=== PATIENT | male | born 1965 | race Two or more races ===

== ENCOUNTER 2022-04-21 15:38 | Inpatient (IN) | payer MEDICAID, OTHER ==
[~2022-04-21] VITALS: Ht 172.7 cm; Wt 71.1 kg
[2022-04-21] MEDS ORDERED: SODIUM CHLORIDE 0.9% 2,000 ML IV ONE (18:30)
[2022-04-21] MEDS ORDERED: IOHEXOL 350 MG/ML 100ML IJ ONE ×2 (18:36)
[2022-04-21 19:29] LABS: Basophils # (auto) 0 10 ^3/uL (0-0.2); Basophils % (auto) 0.4 % (0.0-2.0); Eosinophils # (auto) 0 10 ^3/uL (0-0.8); Hemoglobin 14.1 g/dL (13.5-17.5); Lymphocytes # (auto) 0.3 10 ^3/uL (0.4-5.4); Lymphocytes % (auto) 2.9 % (10.0-50.0); Mean Corpuscular Hemoglobin 28.8 pg (28.0-32.0); Mean Corpuscular Hgb Conc. 33.4 g/dL (32.0-36.0); Monocytes # (auto) 0.4 10 ^3/uL (0-1.3); Neutrophils % (auto) 92.7 % (37.0-80.0); Red Blood Cells 4.89 10^6/uL (4.5-5.90); Red Cell Distribution Width 13.4 % (11.8-14.3); White Blood Cell 10.8 10^3/uL (4.4-10.8)
[2022-04-21 19:46] LABS: Albumin 3.3 g/dL (3.4-5.0); BUN/Creatinine Ratio 17.2; Calcium 8.6 mg/dL (8.5-10.1); Magnesium 1.9 mg/dL (1.6-2.6); Potassium 3.9 mmol/L (3.5-5.1)
[2022-04-21 19:48] LABS: Lactic Acid w/Reflex 2.9 mmol/L (0.4-2.0)
[2022-04-21 19:49] LABS: Bilirubin, Total 1.3 mg/dL (0.2-1.0); Total Protein 7.5 g/dL (6.4-8.2)
[2022-04-21] MEDS ORDERED: diphenhdrAMINE HCL 50 MG/1 ML VL IV ONE (20:15)
[2022-04-21 21:01] LABS: Urine Bacteria FEW /hpf (None Seen); Urine Blood 1+ /uL (Negative); Urine Hyaline Cast MOD /lpf (0 - 2); Urine Mucus FEW (None Seen); Urine Specific Gravity 1.039 (1.001-1.035); Urine WBC 4 /hpf (0 - 3)
[2022-04-21 21:15] LABS: Amphetamine Screen, Urine NEGATIVE (NEGATIVE); Barbiturate Scree,Urine NEGATIVE (NEGATIVE); Benzodiazephine Screen, Urine NEGATIVE (NEGATIVE); Cannabinoid Screen, Urine NEGATIVE (NEGATIVE); Cocaine Screen, Urine NEGATIVE (NEGATIVE); Opiate Scree,Urine NEGATIVE (NEGATIVE); Phencyclidine Screen, Urine NEGATIVE (NEGATIVE)
[2022-04-21] MEDS ORDERED: CEFEPIME 2 GM in SODIUM CHL 0.9% 50 ML IV ONE (21:15)
[2022-04-21] MEDS ORDERED: ONDANSETRON HCL 4 MG/2 ML VIAL IV PRN (22:30)
[2022-04-21] MEDS ORDERED: SODIUM CHLORIDE 0.9% 1,000 ML IV SCH (22:30)
[2022-04-21] MEDS ORDERED: DEXTROSE (50%) 50ML SYRG IV PRN (22:30)
[2022-04-21] MEDS ORDERED: DOCUSATE SOD 100 MG CAP PO PRN (22:30)
[2022-04-21] MEDS ORDERED: MORPHINE SULFATE INJ 2 MG/ml SYRG IV PRN (23:15)
[2022-04-21] MEDS ORDERED: NITROGLYCERIN 0.4 MG SL TAB SL PRN (23:15)
[2022-04-22 01:19] VITALS: BP 105/72
[2022-04-22] MEDS: ACETAMINOPHEN 325 MG TAB PO PRN ×3 (01:19→19:36)
[2022-04-22] MEDS: InsuLIN REG 1unit/0.01ml Soln (100units/ml) SC SCH ×4 (01:50→18:34)
[2022-04-22 02:53] VITALS: BP 105/72
[2022-04-22 05:00] VITALS: BP 118/74
[2022-04-22] MEDS: ACCU-CHEK COMFORT CURVE STRIP VI SCH ×4 (06:00→18:11)
[2022-04-22 07:10] LABS: Basophils # (auto) 0.3 10 ^3/uL (0-0.2); Basophils % (auto) 3.8 % (0.0-2.0); Eosinophils # (auto) 0 10 ^3/uL (0-0.8); Hematocrit 38.4 % (41.0-53.0); Hemoglobin 13.7 g/dL (13.5-17.5); Lymphocytes # (auto) 0.7 10 ^3/uL (0.4-5.4); Lymphocytes % (auto) 7.8 % (10.0-50.0); Mean Corpuscular Hemoglobin 30.1 pg (28.0-32.0); Mean Corpuscular Hgb Conc. 35.6 g/dL (32.0-36.0); Mean Corpuscular Volume 84.6 fL (80.0-100.0); Monocytes # (auto) 0.5 10 ^3/uL (0-1.3); Monocytes % (auto) 6.3 % (0.0-12.0); Neutrophils # (auto) 6.9 10 ^3/uL (1.6-8.6); Neutrophils % (auto) 82.1 % (37.0-80.0); Nucleated Red Blood Cells % 0.1 %; Red Blood Cells 4.54 10^6/uL (4.5-5.90); Red Cell Distribution Width 13.9 % (11.8-14.3); White Blood Cell 8.3 10^3/uL (4.4-10.8)
[2022-04-22 07:19] LABS: Albumin 3.3 g/dL (3.4-5.0); Calcium 8.2 mg/dL (8.5-10.1); Potassium 3.7 mmol/L (3.5-5.1)
[2022-04-22 07:22] LABS: Bilirubin, Total 1.4 mg/dL (0.2-1.0)
[2022-04-22 09:00] VITALS: BP_SYST 111; BP_SYST 120; BP_DIAS 64; BP_DIAS 74
[2022-04-22] MEDS: FAMOTIDINE (10MG/ML) 2ML VL IV SCH (09:25)
[2022-04-22] MEDS: cefTRIAXone 1GM/50ML D5W 50 ML IV SCH (09:25)
[2022-04-22] MEDS: ASPirin 81 mg TAB PO SCH (09:26)
[2022-04-22 17:00] VITALS: BP 113/73
[2022-04-22] MEDS ORDERED: VANCOMYCIN PER PHARMACY 0 MG IV SCH (17:00)
[2022-04-22] MEDS ORDERED: VANCOMYCIN 1GM/250ML 250 ML IV ONE (17:30)
[2022-04-22] MEDS: VANCOMYCIN 1GM/250ML 250 ML IV SCH (18:34)
[2022-04-22] MEDS: SODIUM CHLORIDE 0.9% 1,000 ML IV SCH ×2 (19:17→20:45)
[2022-04-22 22:00] VITALS: BP 111/62
[2022-04-23] MEDS: ACCU-CHEK COMFORT CURVE STRIP VI SCH ×4 (00:07→17:47)
[2022-04-23] MEDS: InsuLIN REG 1unit/0.01ml Soln (100units/ml) SC SCH ×4 (00:09→17:47)
[2022-04-23] MEDS: SODIUM CHLORIDE 0.9% 1,000 ML IV SCH ×3 (04:47→21:06)
[2022-04-23 05:00] VITALS: BP 112/72
[2022-04-23] MEDS: VANCOMYCIN 1GM/250ML 250 ML IV SCH ×2 (06:06→18:00)
[2022-04-23 09:00] VITALS: BP 124/72
[2022-04-23] MEDS: FAMOTIDINE (10MG/ML) 2ML VL IV SCH (11:11)
[2022-04-23] MEDS: ASPirin 81 mg TAB PO SCH (11:11)
[2022-04-23] MEDS: cefTRIAXone 1GM/50ML D5W 50 ML IV SCH (11:12)
[2022-04-23 13:00] VITALS: BP 130/69
[2022-04-23 17:00] VITALS: BP 130/68
[2022-04-23 22:00] VITALS: BP 120/75
[2022-04-23] MEDS: HYDROcodone-ACET 5/325MG TAB PO PRN (22:04)
[2022-04-24] MEDS: InsuLIN REG 1unit/0.01ml Soln (100units/ml) SC SCH ×4 (00:41→18:00)
[2022-04-24] MEDS: ACCU-CHEK COMFORT CURVE STRIP VI SCH ×4 (00:42→18:00)
[2022-04-24] MEDS: SODIUM CHLORIDE 0.9% 1,000 ML IV SCH ×3 (04:53→20:28)
[2022-04-24 05:00] VITALS: BP 121/70
[2022-04-24] MEDS: VANCOMYCIN 1GM/250ML 250 ML IV SCH (05:56)
[2022-04-24 08:00] VITALS: BP 142/72
[2022-04-24] MEDS: cefTRIAXone 1GM/50ML D5W 50 ML IV SCH (10:19)
[2022-04-24] MEDS: HYDROcodone-ACET 5/325MG TAB PO PRN ×2 (10:19→20:56)
[2022-04-24] MEDS: ASPirin 81 mg TAB PO SCH (10:20)
[2022-04-24] MEDS: FAMOTIDINE (10MG/ML) 2ML VL IV SCH (10:20)
[2022-04-24 12:00] VITALS: BP 130/74
[2022-04-24] MEDS ORDERED: PATIENTS OWN MEDICATION (zyvox 600 MG) IV SCH (13:30)
[2022-04-24] MEDS ORDERED: VANCOMYCIN 1GM/250ML 250 ML IV SCH (14:00)
[2022-04-24 16:00] VITALS: BP 134/74
[2022-04-24] MEDS: LINEZOLID 600MG/300ML 300 ML IV SCH (16:00)
[2022-04-24 22:00] VITALS: BP 142/78
[2022-04-25] MEDS ORDERED: LORazepam 2MG/ML-1ML VIAL IV PRN (01:00)
[2022-04-25] MEDS: LINEZOLID 600MG/300ML 300 ML IV SCH (03:05)
[2022-04-25 04:29] LABS: Basophils # (auto) 0 10 ^3/uL (0-0.2); Basophils % (auto) 0.5 % (0.0-2.0); Eosinophils # (auto) 0.1 10 ^3/uL (0-0.8); Eosinophils % (auto) 1.5 % (0.0-7.0); Hematocrit 33.9 % (41.0-53.0); Hemoglobin 11.5 g/dL (13.5-17.5); Lymphocytes # (auto) 0.8 10 ^3/uL (0.4-5.4); Lymphocytes % (auto) 12.3 % (10.0-50.0); Mean Corpuscular Hemoglobin 28.9 pg (28.0-32.0); Mean Corpuscular Volume 84.9 fL (80.0-100.0); Monocytes # (auto) 0.7 10 ^3/uL (0-1.3); Monocytes % (auto) 9.9 % (0.0-12.0); Neutrophils # (auto) 5.1 10 ^3/uL (1.6-8.6); Neutrophils % (auto) 75.8 % (37.0-80.0); Red Blood Cells 3.99 10^6/uL (4.5-5.90); Red Cell Distribution Width 13.7 % (11.8-14.3); White Blood Cell 6.8 10^3/uL (4.4-10.8)
[2022-04-25 05:00] VITALS: BP 122/70
[2022-04-25] MEDS: SODIUM CHLORIDE 0.9% 1,000 ML IV SCH ×3 (05:24→21:49)
[2022-04-25] MEDS: InsuLIN REG 1unit/0.01ml Soln (100units/ml) SC SCH ×5 (06:00→23:40)
[2022-04-25] MEDS: ACCU-CHEK COMFORT CURVE STRIP VI SCH ×5 (06:01→23:40)
[2022-04-25 09:00] VITALS: BP 107/63
[2022-04-25] MEDS: GABAPENTIN 100 MG CAP PO SCH (09:06)
[2022-04-25] MEDS: HYDROcodone-ACET 5/325MG TAB PO PRN (09:06)
[2022-04-25] MEDS: ASPirin 81 mg TAB PO SCH (09:06)
[2022-04-25] MEDS: FAMOTIDINE (10MG/ML) 2ML VL IV SCH (09:06)
[2022-04-25] MEDS ORDERED: DAPTOmycin 6MG/KG PER PHARMACY 0 MG IV SCH (11:00)
[2022-04-25 13:00] VITALS: BP 116/67
[2022-04-25] MEDS ORDERED: DAPTOmycin 500 MG in SODIUM CHL 0.9% 50 ML IV SCH (15:00)
[2022-04-25] MEDS ORDERED: VANCOMYCIN PER PHARMACY 0 MG IV SCH (16:30)
[2022-04-25 16:41] VITALS: BP 122/71
[2022-04-25] MEDS: VANCOMYCIN 1GM/250ML 250 ML IV SCH (17:12)
[2022-04-25 22:00] VITALS: BP 140/73
[2022-04-26] MEDS: VANCOMYCIN 1GM/250ML 250 ML IV SCH ×4 (00:43→23:04)
[2022-04-26 05:00] VITALS: BP 123/69
[2022-04-26 05:36] LABS: Basophils # (auto) 0.1 10 ^3/uL (0-0.2); Basophils % (auto) 1.1 % (0.0-2.0); Eosinophils # (auto) 0.2 10 ^3/uL (0-0.8); Eosinophils % (auto) 2.6 % (0.0-7.0); Hematocrit 33.3 % (41.0-53.0); Hemoglobin 11.4 g/dL (13.5-17.5); Lymphocytes % (auto) 13.5 % (10.0-50.0); Mean Corpuscular Hemoglobin 28.8 pg (28.0-32.0); Mean Corpuscular Hgb Conc. 34.1 g/dL (32.0-36.0); Mean Corpuscular Volume 84.4 fL (80.0-100.0); Monocytes # (auto) 0.7 10 ^3/uL (0-1.3); Monocytes % (auto) 9.5 % (0.0-12.0); Neutrophils # (auto) 5.3 10 ^3/uL (1.6-8.6); Neutrophils % (auto) 73.3 % (37.0-80.0); Red Blood Cells 3.95 10^6/uL (4.5-5.90); White Blood Cell 7.2 10^3/uL (4.4-10.8)
[2022-04-26] MEDS: SODIUM CHLORIDE 0.9% 1,000 ML IV SCH ×3 (05:44→20:59)
[2022-04-26] MEDS: InsuLIN REG 1unit/0.01ml Soln (100units/ml) SC SCH ×4 (05:45→23:05)
[2022-04-26] MEDS: ACCU-CHEK COMFORT CURVE STRIP VI SCH ×4 (05:45→23:05)
[2022-04-26 06:01] LABS: Potassium 3.3 mmol/L (3.5-5.1)
[2022-04-26 06:06] LABS: BUN/Creatinine Ratio 17.1; Calcium 7.4 mg/dL (8.5-10.1); Magnesium 2.3 mg/dL (1.6-2.6)
[2022-04-26 09:00] VITALS: BP 108/69
[2022-04-26] MEDS: FAMOTIDINE (10MG/ML) 2ML VL IV SCH (09:04)
[2022-04-26] MEDS: GABAPENTIN 100 MG CAP PO SCH (09:04)
[2022-04-26] MEDS: ASPirin 81 mg TAB PO SCH (09:04)
[2022-04-26 13:00] VITALS: BP 130/67
[2022-04-26 16:40] LABS: INR 1.13 (0.9-1.15); Partial Thromboplastin Time 33.8 sec (24.6-33.4)
[2022-04-26 16:54] VITALS: BP 143/55
[2022-04-26 22:00] VITALS: BP 125/57
[2022-04-27] MEDS: SODIUM CHLORIDE 0.9% 1,000 ML IV SCH ×3 (04:27→17:33)
[2022-04-27 05:00] VITALS: BP 121/57
[2022-04-27] MEDS: VANCOMYCIN 1GM/250ML 250 ML IV SCH ×4 (05:17→22:59)
[2022-04-27] MEDS: ACCU-CHEK COMFORT CURVE STRIP VI SCH ×4 (05:51→22:59)
[2022-04-27] MEDS: InsuLIN REG 1unit/0.01ml Soln (100units/ml) SC SCH ×4 (05:56→23:06)
[2022-04-27 06:28] LABS: Albumin 2.3 g/dL (3.4-5.0); Calcium 7.6 mg/dL (8.5-10.1)
[2022-04-27 06:31] LABS: BUN/Creatinine Ratio 11.4; Phosphorus 3.2 mg/dL (2.5-4.90)
[2022-04-27 08:44] VITALS: BP 128/65
[2022-04-27] MEDS: ASPirin 81 mg TAB PO SCH (10:13)
[2022-04-27] MEDS: GABAPENTIN 100 MG CAP PO SCH (10:13)
[2022-04-27] MEDS: FAMOTIDINE (10MG/ML) 2ML VL IV SCH (10:13)
[2022-04-27 13:00] VITALS: BP 132/70
[2022-04-27] MEDS ORDERED: LIDOCAINE 1% (LOCAL ANESTH.) PF 5ml SDV ID ONE (15:30)
[2022-04-27 17:00] VITALS: BP 140/68
[2022-04-27] MEDS ORDERED: VANCOMYCIN 1GM/250ML 250 ML IV SCH (21:00)
[2022-04-27 22:00] VITALS: BP 152/78
[2022-04-27] MEDS: SODIUM CHLOR 0.9% PF (SALINE LOCK) 10ML VIAL/SYR IV SCH (22:59)
[2022-04-28 05:30] VITALS: BP 150/72
[2022-04-28] MEDS: ACCU-CHEK COMFORT CURVE STRIP VI SCH ×4 (05:53→23:55)
[2022-04-28] MEDS: VANCOMYCIN 1GM/250ML 250 ML IV SCH ×2 (05:54→12:30)
[2022-04-28] MEDS: InsuLIN REG 1unit/0.01ml Soln (100units/ml) SC SCH ×4 (05:54→23:55)
[2022-04-28 09:01] VITALS: BP 143/69
[2022-04-28] MEDS: SODIUM CHLOR 0.9% PF (SALINE LOCK) 10ML VIAL/SYR IV SCH ×2 (09:40→21:41)
[2022-04-28] MEDS: GABAPENTIN 100 MG CAP PO SCH (09:40)
[2022-04-28] MEDS: FAMOTIDINE (10MG/ML) 2ML VL IV SCH (09:40)
[2022-04-28] MEDS: ASPirin 81 mg TAB PO SCH (09:40)
[2022-04-28 10:36] LABS: BUN/Creatinine Ratio 10.4; Calcium 7.8 mg/dL (8.5-10.1)
[2022-04-28] MEDS ORDERED: POTASSIUM CHL 20 Meq TABLET PO ONE (11:30)
[2022-04-28 12:45] VITALS: BP 148/71
[2022-04-28 16:51] VITALS: BP 145/73
[2022-04-28] MEDS: DAPTOmycin 500 MG in SODIUM CHL 0.9% 50 ML IV SCH (18:36)
[2022-04-28] MEDS: CEFTAROLINE 600 MG in SODIUM CHL 0.9% 250 ML IV SCH (21:11)
[2022-04-28 22:00] VITALS: BP 147/73
[2022-04-29 05:00] VITALS: BP 146/78
[2022-04-29] MEDS: ACCU-CHEK COMFORT CURVE STRIP VI SCH ×4 (05:15→22:15)
[2022-04-29] MEDS: InsuLIN REG 1unit/0.01ml Soln (100units/ml) SC SCH ×4 (05:15→22:15)
[2022-04-29 05:37] LABS: Urine Bacteria NONE SEEN /hpf (None Seen); Urine Blood Negative /uL (Negative); Urine WBC 4 /hpf (0 - 3)
[2022-04-29] MEDS ORDERED: IOHEXOL 300 MG/ML 100ML BOTTLE IJ ONE ×2 (08:20→09:28)
[2022-04-29 09:01] VITALS: BP 139/73
[2022-04-29] MEDS: GABAPENTIN 100 MG CAP PO SCH (10:00)
[2022-04-29] MEDS: ASPirin 81 mg TAB PO SCH (10:00)
[2022-04-29] MEDS: SODIUM CHLOR 0.9% PF (SALINE LOCK) 10ML VIAL/SYR IV SCH ×2 (10:12→22:15)
[2022-04-29] MEDS: CEFTAROLINE 600 MG in SODIUM CHL 0.9% 250 ML IV SCH ×2 (10:12→22:15)
[2022-04-29] MEDS: FAMOTIDINE (10MG/ML) 2ML VL IV SCH (10:51)
[2022-04-29 11:31] LABS: Basophils # (auto) 0 10 ^3/uL (0-0.2); Basophils % (auto) 0.7 % (0.0-2.0); Eosinophils # (auto) 0.1 10 ^3/uL (0-0.8); Eosinophils % (auto) 2.2 % (0.0-7.0); Hematocrit 36.3 % (41.0-53.0); Hemoglobin 12.4 g/dL (13.5-17.5); Lymphocytes % (auto) 17.6 % (10.0-50.0); Mean Corpuscular Hemoglobin 29.2 pg (28.0-32.0); Mean Corpuscular Hgb Conc. 34.1 g/dL (32.0-36.0); Mean Corpuscular Volume 85.6 fL (80.0-100.0); Monocytes # (auto) 0.5 10 ^3/uL (0-1.3); Monocytes % (auto) 7.7 % (0.0-12.0); Neutrophils # (auto) 4.2 10 ^3/uL (1.6-8.6); Neutrophils % (auto) 71.8 % (37.0-80.0); Nucleated Red Blood Cells % 0.1 %; Red Blood Cells 4.23 10^6/uL (4.5-5.90); Red Cell Distribution Width 14.3 % (11.8-14.3); White Blood Cell 5.9 10^3/uL (4.4-10.8)
[2022-04-29 11:56] LABS: BUN/Creatinine Ratio 12.9; Calcium 7.9 mg/dL (8.5-10.1); Potassium 3.3 mmol/L (3.5-5.1)
[2022-04-29 13:00] VITALS: BP 152/78
[2022-04-29] MEDS ORDERED: fentaNYL CITRATE 100 MCG/2 ML VL IV ONE (13:30)
[2022-04-29] MEDS ORDERED: MIDAZOLAM HCL 2MG/2ML 2ml VIAL (1mg/ml) IV ONE (13:30)
[2022-04-29] MEDS ORDERED: POTASSIUM CHL 20 Meq TABLET PO ONE (17:00)
[2022-04-29 17:28] VITALS: BP 141/83
[2022-04-29] MEDS: DAPTOmycin 500 MG in SODIUM CHL 0.9% 50 ML IV SCH (18:44)
[2022-04-29 22:00] VITALS: BP 150/74
[2022-04-30 05:00] VITALS: BP 143/75
[2022-04-30 06:09] LABS: Basophils # (auto) 0.1 10 ^3/uL (0-0.2); Basophils % (auto) 0.8 % (0.0-2.0); Eosinophils # (auto) 0.2 10 ^3/uL (0-0.8); Eosinophils % (auto) 2.8 % (0.0-7.0); Hematocrit 36.3 % (41.0-53.0); Hemoglobin 12.4 g/dL (13.5-17.5); Lymphocytes # (auto) 1.1 10 ^3/uL (0.4-5.4); Lymphocytes % (auto) 17.4 % (10.0-50.0); Mean Corpuscular Hemoglobin 29.4 pg (28.0-32.0); Mean Corpuscular Hgb Conc. 34.3 g/dL (32.0-36.0); Mean Corpuscular Volume 85.7 fL (80.0-100.0); Monocytes # (auto) 0.5 10 ^3/uL (0-1.3); Monocytes % (auto) 7.2 % (0.0-12.0); Neutrophils # (auto) 4.6 10 ^3/uL (1.6-8.6); Neutrophils % (auto) 71.8 % (37.0-80.0); Nucleated Red Blood Cells % 0.1 %; Red Blood Cells 4.23 10^6/uL (4.5-5.90); Red Cell Distribution Width 14.2 % (11.8-14.3); White Blood Cell 6.4 10^3/uL (4.4-10.8)
[2022-04-30 06:26] LABS: Calcium 7.9 mg/dL (8.5-10.1); Magnesium 2.4 mg/dL (1.6-2.6); Potassium 3.8 mmol/L (3.5-5.1)
[2022-04-30 06:29] LABS: BUN/Creatinine Ratio 12.3
[2022-04-30] MEDS: InsuLIN REG 1unit/0.01ml Soln (100units/ml) SC SCH ×4 (06:37→22:23)
[2022-04-30] MEDS: ACCU-CHEK COMFORT CURVE STRIP VI SCH ×4 (06:37→22:23)
[2022-04-30 09:20] VITALS: BP 146/77
[2022-04-30] MEDS: ASPirin 81 mg TAB PO SCH ×2 (10:35→10:36)
[2022-04-30] MEDS: CEFTAROLINE 600 MG in SODIUM CHL 0.9% 250 ML IV SCH ×2 (10:35→22:15)
[2022-04-30] MEDS: SODIUM CHLOR 0.9% PF (SALINE LOCK) 10ML VIAL/SYR IV SCH ×2 (10:35→22:15)
[2022-04-30] MEDS: FAMOTIDINE (10MG/ML) 2ML VL IV SCH (10:35)
[2022-04-30] MEDS: GABAPENTIN 100 MG CAP PO SCH (10:36)
[2022-04-30 13:08] VITALS: BP 128/66
[2022-04-30 16:49] VITALS: BP 133/79
[2022-04-30] MEDS: DAPTOmycin 500 MG in SODIUM CHL 0.9% 50 ML IV SCH (18:09)
[2022-04-30 22:00] VITALS: BP 156/72
[2022-05-01 05:00] VITALS: BP 135/77
[2022-05-01] MEDS: InsuLIN REG 1unit/0.01ml Soln (100units/ml) SC SCH ×4 (06:00→22:16)
[2022-05-01] MEDS: ACCU-CHEK COMFORT CURVE STRIP VI SCH ×4 (06:08→22:16)
[2022-05-01 09:00] VITALS: BP 131/75
[2022-05-01] MEDS: SODIUM CHLOR 0.9% PF (SALINE LOCK) 10ML VIAL/SYR IV SCH ×2 (10:00→22:04)
[2022-05-01] MEDS: GABAPENTIN 100 MG CAP PO SCH (10:00)
[2022-05-01] MEDS: diphenhdrAMINE HCL 25 MG CAP PO PRN ×2 (12:00→17:24)
[2022-05-01] MEDS: diphenhdrAMINE HCL 50 MG/1 ML VL IV PRN ×2 (12:00→22:17)
[2022-05-01] MEDS: ASPirin 81 mg TAB PO SCH (12:02)
[2022-05-01] MEDS: CEFTAROLINE 600 MG in SODIUM CHL 0.9% 250 ML IV SCH ×2 (12:02→22:04)
[2022-05-01] MEDS: FAMOTIDINE (10MG/ML) 2ML VL IV SCH (12:02)
[2022-05-01 13:00] VITALS: BP 142/73
[2022-05-01 17:00] VITALS: BP 142/74
[2022-05-01] MEDS: DAPTOmycin 500 MG in SODIUM CHL 0.9% 50 ML IV SCH (17:24)
[2022-05-01 22:00] VITALS: BP 158/79
[2022-05-02 05:00] VITALS: BP 136/75
[2022-05-02] MEDS: ACCU-CHEK COMFORT CURVE STRIP VI SCH ×4 (06:00→23:24)
[2022-05-02] MEDS: InsuLIN REG 1unit/0.01ml Soln (100units/ml) SC SCH ×4 (06:00→23:24)
[2022-05-02 09:00] VITALS: BP 135/75
[2022-05-02] MEDS: CEFTAROLINE 600 MG in SODIUM CHL 0.9% 250 ML IV SCH (09:54)
[2022-05-02] MEDS: diphenhdrAMINE HCL 25 MG CAP PO PRN ×2 (09:55→23:23)
[2022-05-02] MEDS: GABAPENTIN 100 MG CAP PO SCH (09:55)
[2022-05-02] MEDS: FAMOTIDINE (10MG/ML) 2ML VL IV SCH (09:55)
[2022-05-02] MEDS: SODIUM CHLOR 0.9% PF (SALINE LOCK) 10ML VIAL/SYR IV SCH ×2 (09:55→23:23)
[2022-05-02] MEDS: ASPirin 81 mg TAB PO SCH (09:55)
[2022-05-02] MEDS ORDERED: GADOTERATE MEG 10 MMOL/20ml INJ (0.5MMOL/ml) IV ONE (12:59)
[2022-05-02 13:00] VITALS: BP 133/71
[2022-05-02] MEDS: diphenhdrAMINE HCL 50 MG/1 ML VL IV PRN ×2 (14:00→22:00)
[2022-05-02 14:38] LABS: INR 1.12 (0.9-1.15); Partial Thromboplastin Time 32.5 sec (24.6-33.4)
[2022-05-02 17:00] VITALS: BP 141/82
[2022-05-02] MEDS: DAPTOmycin 500 MG in SODIUM CHL 0.9% 50 ML IV SCH (18:00)
[2022-05-02 22:00] VITALS: BP 149/77
[2022-05-03] MEDS: diphenhdrAMINE HCL 50 MG/1 ML VL IV PRN ×2 (04:18→14:17)
[2022-05-03 05:00] VITALS: BP 126/69
[2022-05-03] MEDS: InsuLIN REG 1unit/0.01ml Soln (100units/ml) SC SCH ×2 (05:47→12:00)
[2022-05-03] MEDS: ACCU-CHEK COMFORT CURVE STRIP VI SCH ×2 (05:47→12:00)
[2022-05-03 08:00] VITALS: BP 124/71
[2022-05-03] MEDS: diphenhdrAMINE HCL 25 MG CAP PO PRN ×2 (08:06→16:46)
[2022-05-03] MEDS ORDERED: DAPT250I IV (08:09)
[2022-05-03] MEDS: ASPirin 81 mg TAB PO SCH (10:34)
[2022-05-03] MEDS: FAMOTIDINE (10MG/ML) 2ML VL IV SCH (10:35)
[2022-05-03] MEDS: GABAPENTIN 100 MG CAP PO SCH (10:38)
[2022-05-03] MEDS ORDERED: LIDOCAINE 1% (LOCAL ANESTH.) PF 5ml SDV ID ONE (11:30)
[2022-05-03 12:00] VITALS: BP 133/74
[2022-05-03] MEDS: SODIUM CHLOR 0.9% PF (SALINE LOCK) 10ML VIAL/SYR IV SCH (15:38)
[2022-05-03] MEDS: DAPTOmycin 500 MG in SODIUM CHL 0.9% 50 ML IV SCH (16:47)
[2022-05-03 16:52] VITALS: BP 125/69
[2022-05-03 17:00] VITALS: BP 125/73
[2022-05-03] MEDS ORDERED: GLIP5TAB12 PO (18:52)
== END 2022-05-03 19:10 | disposition home health service (06) | DRG 720 ==
LOC: ER 15:38 → TELE 23:14 → TELE-WESTW 23:45
PROVIDERS: ADMIT Nurse Practitioner Family; ATTEND Internal Medicine
PROC: 05HB33Z Insertion of Infusion Device into Right Basilic Vein, Percutaneous Approach (ICD-10-PCS; 2022-04-27)
PROC: B54MZZA Ultrasonography of Right Upper Extremity Veins, Guidance (ICD-10-PCS; 2022-04-27)
PROC: B24BZZ4 Ultrasonography of Heart with Aorta, Transesophageal (ICD-10-PCS; principal; 2022-04-29)
PROC: 05HA33Z Insertion of Infusion Device into Left Brachial Vein, Percutaneous Approach (ICD-10-PCS; 2022-05-03)
PROC: B54NZZA Ultrasonography of Left Upper Extremity Veins, Guidance (ICD-10-PCS; 2022-05-03)
DX: A41.02 Sepsis due to Methicillin resistant Staphylococcus aureus (principal); N17.9 Acute kidney failure, unspecified; E87.1 Hypo-osmolality and hyponatremia; T67.01XA Heatstroke and sunstroke, initial encounter; E11.65 Type 2 diabetes mellitus with hyperglycemia; J32.0 Chronic maxillary sinusitis; B02.9 Zoster without complications; E86.0 Dehydration; N39.0 Urinary tract infection, site not specified; E86.1 Hypovolemia; N28.9 Disorder of kidney and ureter, unspecified; L02.31 Cutaneous abscess of buttock; X58.XXXA Exposure to other specified factors, initial encounter; Z20.822 Contact with and (suspected) exposure to COVID-19; K04.7 Periapical abscess without sinus; Z87.891 Personal history of nicotine dependence; Y93.89 Activity, other specified; Y92.89 Other specified places as the place of occurrence of the external cause; Y99.8 Other external cause status; Z79.84 Long term (current) use of oral hypoglycemic drugs
CPT/HCPCS: 36415; 36569; 70487; 70496; 70498; 70551; 71045; 72146; 73706; 80048; 80053; 80069; 80202; 80307; 80320; 81001; 82550; 82565; 82962; 83036; 83605; 83735; 84443; 84484; 85025; 85610; 85730; 87040; 87077; 87147; 87186; 93005; 93306; 93312; 95819; 96361; 96365; 96375; 99152; G0378; J0696; J0712; J1815; J2250; J3490